=== PATIENT | female | born 1990 | race Caucasian/White ===

== ENCOUNTER 2021-11-23 17:37 | Outpatient (CLI) | payer OTHER ==
--- NOTE | 2021-11-24 08:52 | XRAY Report ---
PROCEDURE: Wrist 2 View LT INDICATIONS: L WRIST PX TECHNIQUE: 2 views of the wrist were acquired. COMPARISON: None FINDINGS: Bones: No fractures or dislocations. There is slight ulnar negative variance. No suspicious bony le sions. Scaphoid view: Scaphoid is grossly intact. Soft tissues: No suspicious soft tissue calcifications. IMPRESSION: Unremarkable radiographic examination of left wrist. Reviewed by: Alexx Nagy MD on 11/24/2021 8:51 AM [facility] Approved by: Alexx Nagy MD on 11/24/2021 8:51 AM [facility] Station ID: [id number]
== END 2021-11-23 23:59 | disposition home or self-care (01) ==
LOC: DI.N 17:37
PROVIDERS: ATTEND Nurse Practitioner
DX: M25.532 Pain in left wrist (principal)